=== PATIENT | male | born 1975 | race Caucasian/White ===

== ENCOUNTER → 2023-12-01 06:29 | Day surgery (SDC) | payer OTHER, SELFPAY | LOC: GI 06:29 | PROVIDERS: ATTENDING PHYSICIAN Internal Medicine | DX: K92.1 Melena (principal); C19 Malignant neoplasm of rectosigmoid junction; D12.2 Benign neoplasm of ascending colon; D12.3 Benign neoplasm of transverse colon; D12.4 Benign neoplasm of descending colon; D12.8 Benign neoplasm of rectum; K62.1 Rectal polyp; K56.690 Other partial intestinal obstruction; D49.0 Neoplasm of unspecified behavior of digestive system | CPT/HCPCS: 45390; 45385; 45380; 88305; 88342 ==

== ENCOUNTER → 2023-12-08 13:25 | Outpatient (REF) | payer OTHER, SELFPAY | LOC: HWRAD 13:25 | PROVIDERS: ATTENDING PHYSICIAN Surgery; FAMILY PHYSICIAN Physician Assistant Medical | DX: C19 Malignant neoplasm of rectosigmoid junction (principal) | CPT/HCPCS: 71260; 74177; Q9967 ==

== ENCOUNTER → 2023-12-09 12:17 | Outpatient (REF) | payer OTHER, SELFPAY | LOC: MRI 3T 12:17 | PROVIDERS: ATTENDING PHYSICIAN Surgery; FAMILY PHYSICIAN Physician Assistant Medical | DX: C20 Malignant neoplasm of rectum (principal); C19 Malignant neoplasm of rectosigmoid junction | CPT/HCPCS: 72197; A9575 ==

== ENCOUNTER 2023-12-25 06:09 | Inpatient (IN) | payer OTHER, SELFPAY ==
[2023-12-17 09:47] LABS: APTT 30.1 Sec (23.4-35.0); PT 14.2 Sec (11.4-14.6)
[2023-12-17 11:00] VITALS: BMI 32.1
[2023-12-17 12:13] LABS: Glycohemoglobin (HgbA1c) 5.4 % (4.0-5.6)
--- NOTE | 2023-12-17 12:56 | PTCARENOTE ---
Patients 2 EKG abnormal- reviewed by Kristen- no further interventions required
[2023-12-25] VITALS (16 sets, daily range): BP systolic 101–123; BP diastolic 48–71; BMI 32.1
[2023-12-25] MEDS: NORMOSOL-R 1000 IV ×3 (07:00→20:53)
[2023-12-25] MEDS: ENTEREG 12 MG PO (07:14)
[2023-12-25] MEDS: HEPARIN 5000 UNITS SC (07:14)
[2023-12-25] MEDS: TYLENOL 1000 MG PO (07:14)
--- NOTE | 2023-12-25 12:08 | W.IMMPOSTOP ---
Surgical Immed Post Op Note
-
Primary Surgeon: Jose Fagan MD
Assisting Surgeon: BLADE Lozada and ALBA Capellan Do
Pre-op Diagnosis: Rectosigmoid Carcinoma
Post-op Diagnosis: Rectosigmoid Carcinoma
Procedure Performed: Robotic Low Anterior Rectosigmoid Resection and anastomosis
Anesthesia Type: General Endotracheal
Specimen / Cultures: Rectosigmoid (Suture is proximal)
Estimated Blood Loss: 15cc
Complications: None
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
No signs of metastatic disease
28mm EEA
Patient family updated in waiting room.
Colon Resection
-
Operation performed with curative intent: Yes
Tumor Location: Rectosigmoid Junction
Extent of Colon/Vascular Resection
Sigmoid Resection: Inferior Mesenteric
[2023-12-25] MEDS: ZOFRAN 4 MG IV (12:30)
[2023-12-25] MEDS: DILAUDID 0.5 MG IV ×3 (12:32→16:50)
[2023-12-25] MEDS: TORADOL 15 MG IV ×2 (13:18→18:04)
--- NOTE | 2023-12-25 14:32 | PTCARENOTE ---
Patient admitted from [facility] for resection of rectosigmoid colon secondary to cancer.The patient rates his pain at an 8 out of 10.Vital signs are stable.all 5 incisions are clean with no drainage.The patient is in his bed with the call sawyer in
reach.His family is at the bedside.
[2023-12-25] MEDS: TYLENOL 650 MG PO ×2 (16:50→20:50)
[2023-12-26] MEDS: TORADOL 15 MG IV ×5 (00:50→23:50)
[2023-12-26] MEDS: TYLENOL PO ×2 (00:54→04:00)
[2023-12-26 03:15] VITALS: BP 107/68
[2023-12-26] MEDS: DILAUDID 0.5 MG IV ×2 (05:22→14:49)
[2023-12-26] MEDS: NORMOSOL-R 1000 IV ×3 (05:22→23:50)
[2023-12-26 06:00] VITALS: BMI 31.8
[2023-12-26 06:51] LABS: % Basophils 0.1 % (0-2); % Immature Granulocytes 0.4 % (0-0.5); % Lymphocytes 9.1 % (20.5-51.1); % Monocytes 9.9 % (1.7-9.3); % Neutrophils 80.5 % (42.2-75.2); Absolute Lymphocytes 0.7 10^3/uL (1.2-3.4); Absolute Monocytes 0.8 10^3/uL (0.1-0.6); Absolute Neutrophils 6.3 10^3/uL (1.4-6.5); Hematocrit 38.8 % (39.0-52.0); Hemoglobin 13.4 g/dL (13.0-18.0); Mean Corp Hgb Conc. 34.5 g/dL (33.0-37.0); Mean Corpuscular Hgb 30.5 pg (27.0-31.0); Mean Corpuscular Volume 88.2 fL (80.0-94.0); Nucleated Red Blood Cells % 0 % (-); Red Cell Dist. Width 12.2 % (11.5-14.5); White Blood Cell Count 7.9 10^3/uL (4.8-10.8)
[2023-12-26 07:17] LABS: Blood Urea Nitrogen 16 mg/dl (9-20); Calcium 8.2 mg/dl (8.4-10.2); Carbon Dioxide 24 mmol/L (22-30); Chloride 104 mmol/L (98-107); Estimated Creatinine Clearance 111 ml/min; Glucose 94 mg/dl (70-99); Potassium 4.4 mmol/L (3.5-5.1); Sodium 134 mmol/L (135-145); eGFR > 60.00
[2023-12-26 07:18] VITALS: BP 118/60
[2023-12-26] MEDS: RITALIN 10 MG PO (08:11)
[2023-12-26] MEDS: ENTEREG 12 MG PO ×2 (08:11→20:00)
[2023-12-26] MEDS: TYLENOL 650 MG PO ×4 (08:11→20:00)
--- NOTE | 2023-12-26 10:23 | W.PN.CRS1 ---
Today's Communication / Plan
-
Clear liquids, advance to fulls as tolerated
Assessment/Plan
-
47 yo male with h/o rectosigmoid carcinoma now POD #1 robotic low anterior resection
AFVSS
Labs stable although a low platelet count of 69 noted. Outpatient chart reviewed without baseline platelet level unavailable
--Continue mcclure through today, VT in AM
--Start clear liquids and advance to FLD later today if tolerating
--Scheduled Tylenol/Toradol and prn dilaudid/Tramadol
--IVF until tolerating PO
--SCD's while in bed, hold chemical vte ppx given thrombocytopenia.
--OOB/Ambulate
Subjective Data
Procedure
12/25/23 Robotic low anterior resection with intracorporeal anastomosis.
Subjective Data
Date of Service: December 26, 2023
Patient seen and examined at bedside with Dr. Ramsey. Denies n/v. OOB and working on computer. Denies pain. Passing flatus.
Objective Data
-
Vital Signs
Temp Pulse Resp BP Pulse Ox
98.8 F 67 18 118/60 98
12/26/23 07:18 12/26/23 07:18 12/26/23 07:18 12/26/23 07:18 12/26/23 07:18
Intake & Output
12/25/23 12/26/23 12/27/23
06:59 06:59 06:59
Intake Total 2590 / 2590 320 / 320
Output Total 1850 / 1850
Balance 740 / 740 320 / 320
Intake:
Oral fluids 240 / 240 120 / 120
IV fluids (Total) 2350 / 2350 200 / 200
Normosal 700 / 700
Output:
Urine, Cmclure 1150 / 1150
Urine, Voided 700 / 700
Lab Results
12/26/23 05:22
12/26/23 05:22
Physical Exam
-
General: No Acute Distress
HEENT: Grossly Normal
Abdomen: Soft, Non Distended and Non Tender
Skin: Warm and Dry
Incision: Clear, Dry, Intact
[2023-12-26 11:07] VITALS: BP 131/78
[2023-12-26 15:39] VITALS: BP 126/69
--- NOTE | 2023-12-26 16:25 | CM ---
Alert awake oriented patient who lives with his Marilyn who lives in a 2 story home with 4 step to enter and 14 steps bed and bathroom . He is independent in driving and in all activities of daily living.He was offered Vn he declined need.
No VN/SNF history
Ph[facility]acy [facility]
PCP DR León
PLAN Home Declined VN
[2023-12-26] MEDS: MYLICON 80 MG PO (22:57)
[2023-12-26 23:15] VITALS: BP 144/86
[2023-12-26] MEDS: ULTRAM 50 MG PO (23:50)
[2023-12-27] MEDS: TYLENOL PO
[2023-12-27] MEDS: MYLICON 80 MG PO (01:59)
[2023-12-27 05:12] LABS: Hemoglobin 12.2 g/dL (13.0-18.0); Mean Corp Hgb Conc. 33.9 g/dL (33.0-37.0); Mean Corpuscular Hgb 30.6 pg (27.0-31.0); Mean Corpuscular Volume 90.2 fL (80.0-94.0); Red Blood Cell Count 3.99 10^6/uL (4.70-6.10); Red Cell Dist. Width 12.3 % (11.5-14.5)
[2023-12-27] MEDS: TYLENOL 650 MG PO ×3 (05:24→13:22)
[2023-12-27] MEDS: ULTRAM 50 MG PO (05:24)
[2023-12-27 05:38] LABS: Blood Urea Nitrogen 16 mg/dl (9-20); Calcium 8.4 mg/dl (8.4-10.2); Carbon Dioxide 29 mmol/L (22-30); Chloride 104 mmol/L (98-107); Estimated Creatinine Clearance 101 ml/min; Glucose 88 mg/dl (70-99); Potassium 4.3 mmol/L (3.5-5.1); Sodium 135 mmol/L (135-145); eGFR > 60.00
[2023-12-27 06:00] VITALS: BMI 32.3
[2023-12-27 07:15] VITALS: BP 139/83
[2023-12-27] MEDS: TORADOL 15 MG IV ×2 (08:19→13:23)
[2023-12-27] MEDS: RITALIN 10 MG PO (08:20)
[2023-12-27] MEDS: ENTEREG 12 MG PO (08:20)
--- NOTE | 2023-12-27 09:25 | W.PN.CRS1 ---
Addendum entered and electronically signed by Josias Bynum MD 12/27/23 17:08:
I saw and examined the patient.
The [employer]BI[employer]HICLE OPERATOR's note was reviewed and I agree with the note.
Comment:
No issues overnight, tolerating diet
AFVSS, abdomen appropriately tender
� Advance to low residue and discharge if tolerating
�Pain control with Tylenol, Toradol, tramadol as needed
Original Note:
Today's Communication / Plan
-
Dispo planning
Assessment/Plan
-
47 yo male with h/o rectosigmoid carcinoma now POD #1 robotic low anterior resection
AFVSS
Labs stable, platelets unable to be preformed (plan outpatient follow up)
+flatus
voiding
--Advance to LRD
--Scheduled Tylenol/Toradol and prn dilaudid/Tramadol
--Off IVF
--SCD's while in bed, hold chemical vte ppx given thrombocytopenia.
--OOB/Ambulate
Discharge later today if tolerating diet
Subjective Data
Procedure
12/25/23 Robotic low anterior resection with intracorporeal anastomosis.
Subjective Data
Date of Service: December 27, 2023
Patient seen and examined at bedside. Denies n/v. Lots of flatus overnight. No BM as of yet. Voided without difficulty since mcclure catheter removed. Ambulating in room/halls.
Objective Data
-
Vital Signs
Temp Pulse Resp BP Pulse Ox
98.0 F 61 18 139/83 95
12/27/23 07:15 12/27/23 07:15 12/27/23 07:15 12/27/23 07:15 12/27/23 07:15
Intake & Output
12/26/23 12/27/23 12/28/23
06:59 06:59 06:59
Intake Total 2590 / 2590 3180 / 3180
Output Total 1850 / 1850 3000 / 3000
Balance 740 / 740 180 / 180
Intake:
Oral fluids 240 / 240 2980 / 2980
IV fluids (Total) 2350 / 2350 200 / 200
Normosal 700 / 700
Output:
Urine, Mcclure 1150 / 1150 3000 / 3000
Urine, Voided 700 / 700
Lab Results
12/27/23 04:10
12/27/23 04:10
Physical Exam
-
General: No Acute Distress
HEENT: Grossly Normal
Abdomen: Soft, Non Distended and Non Tender
Skin: Warm and Dry
Incision: Clear, Dry, Intact (intact glue)
--- NOTE | 2023-12-27 12:02 | W.DCSUMMARY ---
Discharge Summary
Discharge Data
Date of Admission: 12/25/23
Date of Discharge: 12/27/23
-
Pending Results: No
Hospital Course
This is a 47 yo male with a history of rectosigmoid cancer who presented for surgical management with robotic low anterior sigmoid resection. He tolerated the procedure well. He was able to tolerate diet advancement prior to discharge with good
control of post operative pain. He was able void without difficulty after removal of perioperative mcclure. He was discharged to home with outpatient follow up planned in the coming weeks. Pathology sent and pending.
Discharge Plan
-
Patient Disposition: Home (Routine Discharge)
Discharge Diagnosis/Procedures: Robotic Low Anterior Rectosigmoid Resection and anastomosis
Condition: Good
Diet: Low Fiber
Activity: No strenuous activity
Additional Activity: Do not lift more than 10 pounds (gallon of milk)
Driving Restrictions: Wait until comfortable twisting/off narcotics
Bathing Restrictions: OK to Shower
Wound Care: Wash incisions gently with soap and water. Avoid scrubbing or picking off the glue.
Activity Restrictions/Additional Instructions:
Call your surgeon if you have a fever >100.5, nausea with vomiting or worsening abdominal pain
Referrals:
Damion Fagan MD [Active] - in two to four weeks
Sharon León PA-C [Family Provider] -
Prescriptions:
New
acetaminophen [acetaminophen] 325 mg tablet
650 mg PO Q4HPRN PRN (Reason: mild pain) Qty: 1 0RF
tramadol 50 mg tablet
25 - 50 mg PO Q6HPRN PRN (Reason: severe pain/breakthrough pain) Qty: 10 0RF
Continued
multivitamin Tablet
1 tab PO DAILY
methylphenidate HCl 10 mg Tablet
10 mg PO DAILY
ibuprofen 800 mg Tablet
800 mg PO Q6H PRN (Reason: pain)
Discharge Orders:
Discharge Patient (As Directed); Ordered 12/27/23
Ordered By: Bella Gillette
Discharge Date and Time
Discharge Date/Time: 12/27/23 14:43
--- NOTE | 2023-12-27 12:50 | CM ---
MD entered order for discharge.
spoke with Marilyn she said she will drive him home.
Offered VN they declined need.
Plan Home no needs
== END 2023-12-27 14:43 | disposition home or self-care (01) | DRG 333 ==
LOC: 2 SOUTH 06:09
PROVIDERS: Registered Nurse; ADMITTING PHYSICIAN Surgery; FAMILY PHYSICIAN Physician Assistant Medical
PROC: 0DTP4ZZ Resection of Rectum, Percutaneous Endoscopic Approach (ICD-10-PCS; 2023-12-25)
PROC: 8E0W4CZ Robotic Assisted Procedure of Trunk Region, Percutaneous Endoscopic Approach (ICD-10-PCS; 2023-12-25)
PROC: 0DJD8ZZ Inspection of Lower Intestinal Tract, Via Natural or Artificial Opening Endoscopic (ICD-10-PCS; 2023-12-25)
DX: C19 Malignant neoplasm of rectosigmoid junction (principal); Q43.8 Other specified congenital malformations of intestine; D69.6 Thrombocytopenia, unspecified; K66.0 Peritoneal adhesions (postprocedural) (postinfection)
CPT/HCPCS: 88309; 36415; 80048; 83036; 85025; 85027; 85610; 85730; 86850; 86900; 86901; 93005; J1335

== ENCOUNTER → 2024-06-21 06:32 | Day surgery (SDC) | payer OTHER, SELFPAY | LOC: GI 06:32 | PROVIDERS: ATTENDING PHYSICIAN Internal Medicine | DX: Z12.11 Encounter for screening for malignant neoplasm of colon (principal); R10.13 Epigastric pain; D12.3 Benign neoplasm of transverse colon; D12.5 Benign neoplasm of sigmoid colon; K29.50 Unspecified chronic gastritis without bleeding; K63.5 Polyp of colon; Z98.0 Intestinal bypass and anastomosis status | CPT/HCPCS: 45390; 45385; 45380; 43239; 88305; 88342 ==

== ENCOUNTER 2025-03-27 05:51 | Emergency (ER) | payer BC, SELFPAY ==
[2025-03-27] VITALS (7 sets, daily range): BP systolic 119–170; BP diastolic 71–104; BMI 32.9
[2025-03-27] MEDS: OMNIPAQUE 50 ML PO (06:27)
[2025-03-27] MEDS: NSS 1000 IV (06:34)
[2025-03-27] MEDS: MORPHINE SULFATE 4 MG IV (06:35)
[2025-03-27] MEDS: ZOFRAN 4 MG IV (06:35)
[2025-03-27 06:45] LABS: Urine Albumin Negative (Neg - Trace); Urine Bilirubin Negative (Negative); Urine Character Clear (Clear); Urine Color Yellow; Urine Glucose Negative (Negative); Urine Ketone Negative (Negative); Urine Leukocyte Negative (Negative); Urine Nitrite Negative (Negative); Urine Occult Blood Negative (Negative); Urine Specific Gravity 1.025 (<1.030); Urine Urobilinogen Negative (Neg - 1+)
[2025-03-27 06:50] LABS: Lactic Acid 1.4 mmol/L (0.7-2.0)
[2025-03-27 06:51] LABS: ALT (SGPT) 41 U/L (0-50); AST (SGOT) 48 U/L (17-59); Albumin 4.3 g/dl (3.5-5.0); Alkaline Phosphatase 56 U/L (38-126); Blood Urea Nitrogen 21 mg/dl (9-20); Calcium 9.6 mg/dl (8.4-10.2); Carbon Dioxide 26 mmol/L (22-30); Chloride 108 mmol/L (98-107); Estimated Creatinine Clearance 124 ml/min; Glucose 123 mg/dl (70-99); Lipase 130 U/L (23-300); Potassium 4.3 mmol/L (3.5-5.1); Sodium 141 mmol/L (135-145); Total Bilirubin 0.5 mg/dl (0.2-1.3); Total Protein 6.9 g/dl (6.3-8.2); eGFR > 60.00
[2025-03-27 07:10] LABS: % Basophils 0.4 % (0-2); % Eosinophils 0.6 % (0-6); % Immature Granulocytes 0.3 % (0-0.5); % Lymphocytes 12.3 % (20.5-51.1); % Monocytes 6.5 % (1.7-9.3); % Neutrophils 79.9 % (42.2-75.2); Absolute Lymphocytes 0.8 10^3/uL (1.2-3.4); Absolute Monocytes 0.4 10^3/uL (0.1-0.6); Absolute Neutrophils 5.4 10^3/uL (1.4-6.5); Hematocrit 42.9 % (39.0-52.0); Hemoglobin 14.8 g/dL (13.0-18.0); Mean Corp Hgb Conc. 34.5 g/dL (33.0-37.0); Mean Corpuscular Hgb 30.3 pg (27.0-31.0); Mean Corpuscular Volume 87.9 fL (80.0-94.0); Nucleated Red Blood Cells % 0 % (-); Red Blood Cell Count 4.88 10^6/uL (4.70-6.10); Red Cell Dist. Width 12.4 % (11.5-14.5); White Blood Cell Count 6.8 10^3/uL (4.8-10.8)
--- NOTE | 2025-03-27 10:15 | ED.GENMED ---
History of Present Illness
General
Chief Complaint: Abdominal Pain
Source: patient and spouse
Time Seen by Provider: 03/27/25 06:05
History of Present Illness
History of Present Illness:
This is a 49-year-old male with a history of colon cancer and bowel resection presents with abdominal discomfort since about midnight. The patient states he normally does produce a lot of bowel gas and typically feels this discomfort but is able to
pass gas and feel better. He states since midnight he is not able to pass gas like normal. He does admit that he vomited several times. Feels a little better from a nausea perspective but does still have discomfort. No fevers. No melena. No
hematochezia. He is monitored by lab work and likely has not required any further chemotherapy or radiation. Patient denies urinary symptoms. Spouse states that he does typically produce good amount of gas.
Past History
Past History
ED Past Medical History: Cancer (colon) and Psychiatric (adhd)
ED Past Surgical History: Bowel resection
Social History
Tobacco: Non-smoker
Personal:
Living: with family
Employment: Employed
Phy Exam
Physical Exam
Physical Exam:
CONSTITUTIONAL Patient alert and oriented to person, place and time. Well-appearing. Vital signs reviewed.
HEAD atraumatic, normocephalic.
EYES eyelids normal to inspection, Extraocular muscles intact, Conjunctiva normal, Sclera normal.
NECK normal range of motion, Trachea midline, no jugular venous distention.
RESPIRATORY CHEST No respiratory distress noted, Chest expansion equal, Bilateral breath sounds clear.
CARDIOVASCULAR regular rate and rhythm, Heart sounds normal.
ABDOMEN mild diffuse tenderness, bowel sounds slightly hypoactive. No distention.
BACK normal inspection, no obvious deformities
UPPER EXTREMITY range of motion normal, Motor strength normal, no cyanosis, no edema.
LOWER EXTREMITY range of motion normal, Motor strength normal, no cyanosis, no edema.
NEURO Speech normal, No focal motor deficits, Samantha coma scale 15, Memory normal, Cranial Nerves intact to screening exam.
SKIN skin warm, dry, and normal in color.
Course
Orders/Labs/Results
Orders:
Orders
03/27/25 06:06
IV Insert/Care/Rem.- Treatment PRN
03/27/25 06:16
Complete Blood Count/With Diff Urgent
Comprehensive Metabolic Panel Urgent
Lactate Level [Lactic Acid] Urgent
Lipase Urgent
Urinalysis Reflex To Culture Urgent
Date Specimen was Collected: 03/27/25
Time Specimen was Collected: 06:06
03/27/25 06:24
Iohexol [Omnipaque] 50 ml .ROUTE .STK-MED ONE
Iohexol [Omnipaque] See Protocol PO NOW STA
03/27/25 06:25
CT Abd/pel W Iv And Oral Contr Urgent
Comment:
Reason For Exam: abdominal pain, vomiting, h.o bowel resection
03/27/25 06:31
0.9% Sodium Chloride 1000 ml [Nss] 1,000 ml IV BOLUS
Morphine Sulfate 4 mg IV NOW STA
Ondansetron Injectable [Zofran] 4 mg IV NOW STA
03/27/25 06:33
Morphine Sulfate 4 mg .ROUTE .STK-MED ONE
Ondansetron Injectable [Zofran] 4 mg .ROUTE .STK-MED ONE
03/27/25 10:14
Dicyclomine HCl [Bentyl] 20 mg IM NOW STA
Ketorolac [Toradol] 15 mg IV NOW STA
Abnormal Lab Results
03/27/25
06:16
Absolute Lymphs (auto) 0.8 L 10^3/uL
(1.2-3.4)
Neutrophils % 79.9 H %
(42.2-75.2)
Lymphocytes % 12.3 L %
(20.5-51.1)
Chloride 108 H mmol/L
(98-107)
BUN 21 H mg/dl
(9-20)
Glucose 123 H mg/dl
(70-99)
03/27/25 06:16
03/27/25 06:16
Vital Signs
Initial and Last Documented VS:
Initial Vital Signs
Temp Pulse Resp BP Pulse Ox
97.7 F 54 22 170/104 98
03/27/25 05:53 03/27/25 05:53 03/27/25 05:53 03/27/25 05:53 03/27/25 05:53
Last Documented Vital Signs
Temp Pulse Resp BP Pulse Ox
97.7 F 54 16 144/92 96
03/27/25 05:53 03/27/25 09:01 03/27/25 09:01 03/27/25 09:01 03/27/25 08:00
MDM/Problems Addressed
Differential Diagnosis Includes:
Small bowel obstruction, large bowel obstruction, enteritis, appendicitis, colitis, electrolyte imbalance
MDM/Problems Addressed:
Abdominal pain
*Radiology
Radiology exam reviewed: radiology read reviewed
*Pulse Oximetry
Patient hypoxic: no
*Critical Care Note
Total Time (30-74mins, 75-104mins- exclusive of procedures): Not Applicable
Data Reviewed
Source: patient and spouse
Patient Management
Escalation/DeEscalation of care consider admission/obs:
Patient appears well. CT grossly unremarkable as per radiology. Does have a fair amount of stool in the right colon. No noted bowel obstruction by radiology. For now will recommend clear liquid diet and provide Bentyl for as needed use. Also
recommended MiraLAX twice a day for the next 2 to 3 days. I also recommend outpatient follow-up with Dr. Fagan if symptoms persist. However I did recommend that if the patient had any worsening symptoms or intractable vomiting or fevers that he
should come back to the emergency department for reassessment. Patient and spouse agree
ED Attending Note
-
Portions of this chart may have been created with voice recognition software.� Occasional wrong word or��sound alike� substitutions may have occurred due to the inherent limitations of voice recognition software.
Discharge Plan
Departure
Patient Disposition: Home (Routine Discharge)
Date of Disposition: 03/27/25
Time of Disposition: 10:20
Patient with high blood pressure during this ER visit?: Yes
Discharge Problem:
Abdominal pain
Instructions: Clear Liquid Diet, Abdominal Pain, BLOOD PRESSURE
Prescriptions:
New
dicyclomine 20 mg tablet
20 mg PO QID PRN (Reason: abdominal cramping/pain) Qty: 20 0RF
No Action
multivitamin Tablet
1 tab PO DAILY
methylphenidate HCl 10 mg Tablet
10 mg PO DAILY
ibuprofen 800 mg Tablet
800 mg PO Q6H PRN (Reason: pain)
Referrals:
Sharon León PA-C [Family Provider] -
Activity Restrictions/Additional Instructions:
Please stick to clear liquid diet for the next 24 to 48 hours. As symptoms improve, advance diet slowly. Please return immediately for fevers, intractable vomiting, worsening pain or any other concerns. If symptoms persist to a mild degree,
please see your doctor or Dr. Fagan in follow-up in the next 3 days. As discussed, please consider MiraLAX once to twice a day for the next week 3-40
Interventions
Interventions:
*Risk Screen - Suicide Last Done: 03/27/25 05:53
*General Assessment Last Done: 03/27/25 06:13
*Neglect/Abuse Screening Last Done: 03/27/25 05:53
*ED- Fall Risk Assessment Last Done: 03/27/25 06:12
*ED COVID-19 Vaccine History Last Done: 03/27/25 06:12
PE-Liahaz-Hdksmxwyoo Assessment Last Done: 03/27/25 07:43
Discharge Date and Time
Print Language: MALAWIAN
[2025-03-27] MEDS: TORADOL 15 MG IV (10:21)
[2025-03-27] MEDS: BENTYL 20 MG IM (10:22)
== END 2025-03-27 10:35 | disposition home or self-care (01) ==
LOC: EMR 05:51
PROVIDERS: Emergency Medicine; EMERGENCY PHYSICIAN Emergency Medicine; FAMILY PHYSICIAN Physician Assistant Medical
DX: R10.9 Unspecified abdominal pain (principal); R11.2 Nausea with vomiting, unspecified; R14.3 Flatulence; R03.0 Elevated blood-pressure reading, without diagnosis of hypertension; F90.9 Attention-deficit hyperactivity disorder, unspecified type; Z85.038 Personal history of other malignant neoplasm of large intestine
CPT/HCPCS: 99284; 96375 ×2; 96361; 96372; 96374; 74177; 80053; 81003; 83605; 83690; 85025; Q9967

== ENCOUNTER 2025-07-26 06:19 | Day surgery (SDC) | payer BC, SELFPAY | END 2025-07-26 13:36 | disposition home or self-care (01) | LOC: GI 06:19 | PROVIDERS: ATTENDING PHYSICIAN Internal Medicine | DX: Z12.11 Encounter for screening for malignant neoplasm of colon (principal); D12.3 Benign neoplasm of transverse colon; K62.1 Rectal polyp; K64.8 Other hemorrhoids; Z85.038 Personal history of other malignant neoplasm of large intestine; Z98.0 Intestinal bypass and anastomosis status | CPT/HCPCS: 45385; 45380; 88305 ==